=== PATIENT | female | born 1965 | race Caucasian/White ===

== ENCOUNTER → 2017-04-04 | Outpatient (CLI) | payer BC ==
--- NOTE | 2017-04-04 10:49 | Diagnostic Imaging Report ---
TECHNIQUE: Magnetic resonance imaging of the RIGHT HAND was performed WITHOUT injected contrast. HISTORY: Pain, evaluate for ulnar collateral ligament injury COMPARISON: None. FINDINGS: Bone marrow signal is normal. No fracture or edema. Areas of incomplete fat suppression of the phalanges. At the metacarpophalangeal joint of the thumb, no joint effusion with normal alignment. The ulnar collateral ligament (image 6, series 8) is intact. Additionally the radial collateral ligament is intact. Small linear ganglion (image 7, series 8, and image 23, series 7) overlying the ulnar aspect of the joint. The flexor pollicis longus tendon is intact with mild fluid around the tendon. Annular pulleys are intact. IMPRESSION: Intact collateral ligament of the thumb metacarpophalangeal joint. Mild tenosynovitis of the flexor pollicis longus. Signed by: Dr. Julius Valdes M.D. on 04/04/2017 10:45 AM
== END ==
LOC: MRI 08:27
PROVIDERS: ATTEND Plastic Surgery
DX: M79.644 Pain in right finger(s) (principal)